=== PATIENT | male | born 1980 | race African-American/Black ===

== ENCOUNTER 2022-12-16 00:38 | Emergency (ER) | payer OTHER, SELFPAY ==
[2022-12-16 00:40] VITALS: BP 178/108; PULSE 80; RESP 20; TEMP 36.7; O2SAT 98
--- NOTE | 2022-12-16 02:32 | PC.NURSE ---
Pt c/o pain to R hip radiating down right leg. Denies any numbness or tingling, denies saddle numbness. Admits to known back problems . Pt also reports wants to be seen for his painful, non-bleeding hemorrhoids.
--- NOTE | 2022-12-16 02:43 | ED.GENADULT ---
HPI - General Adult General Chief complaint: Extremity Problem,Nontraumatic Stated complaint: RLE pain Time Seen by Provider: 12/16/22 02:31 History of Present Illness HPI narrative: this is a 41-year-old male with 2 complaints. First complaint is right leg pain. Patient has pain extending from his right glute down the back of his leg. pain is positional. No weakness to the extremity. No history of sciatica. No red flags such as IV drug abuse, fevers urinary retention or bowel incontinence. Patient has been taking Motrin with some relief. Second complaint is hemorrhoids. Patient having rectal pain since Wednesday. He has been treating it with preparation H. he has had hemorrhoids in the past. No abdominal pain or bleeding. [facility] Past Medical History Medical History Hemorrhoids Exam Narrative: APPEARANCE: No apparent distress. Head: atraumatic. EYES: EOMI, NOSE: Atraumatic NECK: Trachea midline RESPIRATORY: No increased rate of breathing CARDIOVASCULAR: RRR, ABDOMINAL: Non-distended rectal exam: No external hemorrhoids, no fissures MUSCULOSKELETAl: No obvious deformities, straight leg negative bilaterally, compartments are soft, no overlying skin changes, neurovascularly intact NEURO: Alert. Moving 4/4 extremities SKIN:: Warm, dry. Normal color PSYCHIATRIC: Normal affect Course Vital Signs Vital signs: Vital Signs Temperature 98.1 F 12/16/22 00:40 Pulse Rate 80 12/16/22 00:40 Respiratory Rate 20 12/16/22 00:40 Blood Pressure 178/108 H 12/16/22 00:40 Pulse Oximetry 98 12/16/22 00:40 Oxygen Delivery Room Air 12/16/22 00:40 Temperature 98.1 F 12/16/22 00:40 Pulse Rate 80 12/16/22 00:40 Respiratory Rate 20 12/16/22 00:40 Blood Pressure 178/108 H 12/16/22 00:40 Pulse Oximetry 98 12/16/22 00:40 Oxygen Delivery Room Air 12/16/22 00:40 Medical Decision Making [facility] Narrative Medical decision making narrative: -Course: 38-year-old presenting with 2 complaints. First complaint is right leg pain. Symptoms are consistent with sciatica. We treated with NSAIDs and muscle relaxers. Second complaint is hemorrhoids. Patient be discharged with Anusol, stool softeners instructions to use Sitz baths. Given primary care follow-up -DDX includes but is not limited to: muscle strain/sprain, sciatica, hemorrhoids, rectal fissure -Social determinants of health: works at [employer], lives with -Interventions: Motrin Tylenol Robaxin -Shared decision making / Disposition: discharged -RX Anusol, docusate, senna, Motrin, Tylenol, Robaxin Vital Signs Vital Signs: Vital Signs Temperature 98.1 F 12/16/22 00:40 Pulse Rate 80 12/16/22 00:40 Respiratory Rate 20 12/16/22 00:40 Blood Pressure 178/108 H 12/16/22 00:40 Pulse Oximetry 98 12/16/22 00:40 Oxygen Delivery Room Air 12/16/22 00:40 Temperature 98.1 F 12/16/22 00:40 Pulse Rate 80 12/16/22 00:40 Respiratory Rate 20 12/16/22 00:40 Blood Pressure 178/108 H 12/16/22 00:40 Pulse Oximetry 98 12/16/22 00:40 Oxygen Delivery Room Air 12/16/22 00:40 Discharge Plan Discharge Clinical Impression: Sciatica, Acute hemorrhoid Patient Disposition: Home, Self-Care Condition: Stable Instructions: Antibiotic Form, Hemorrhoids (DC), Sciatica (ED) Additional Instructions: please use the medications as prescribed. Please follow-up with your primary care physician for further management. Prescriptions: New ibuprofen 800 mg tablet 800 mg PO TID PRN (Reason: pain) 7 Days Qty: 21 0RF acetaminophen 500 mg tablet 1,000 mg PO TID PRN (Reason: brandon) 7 Days Qty: 42 0RF methocarbamol 750 mg tablet 1,500 mg PO TID Qty: 42 0RF docusate calcium 240 mg capsule 240 mg PO DAILY Qty: 30 0RF sennosides [Natural Senna Laxative] 8.6 mg tablet 8.6 mg PO DAILY Qty: 30 0RF hydrocortisone [Anusol-HC] 2.5
[2022-12-16] MEDS: ACETAMINOPHEN 500 MG TABLET 1000 MG PO (03:06)
[2022-12-16] MEDS: IBUPROFEN 400 MG TABLET 800 MG PO (03:07)
[2022-12-16] MEDS: methocarbamoL 750 MG TABLET 1500 MG PO (03:07)
[2022-12-16 03:12] VITALS: BP 138/84; PULSE 74; RESP 18; O2SAT 97
== END 2022-12-16 03:13 | disposition home or self-care (01) ==
PROVIDERS: Emergency Provider Emergency Medicine; PCP Internal Medicine
DX: M54.31 Sciatica, right side (principal); K64.9 Unspecified hemorrhoids
CPT/HCPCS: 99283; A9270